=== PATIENT | male | born 1970 | race Caucasian/White ===

== ENCOUNTER 2024-02-19 17:15 | Outpatient (CLI) | payer BC, SELFPAY ==
--- NOTE | ~2024-02-19 | XR_ITS ---
EXAMINATION: XR pelvis 1-2V DATE: 02/19/2024 18:18 INDICATION: Pelvic pain. TECHNIQUE: An anteroposterior view of the pelvis was obtained. COMPARISON: None. FINDINGS: Bone alignment is normal. No fracture. There is mild osteoarthritis of the hips. IMPRESSION: 1. Mild osteoarthritis of the hips. Reviewed, dictated and finalized at location A.
== END 2024-02-19 17:16 | disposition home or self-care (01) ==
LOC: CHSIMG 17:18
PROVIDERS: PCP Internal Medicine; Visit Provider Internal Medicine
DX: R10.2 Pelvic and perineal pain (principal); M16.0 Bilateral primary osteoarthritis of hip
CPT/HCPCS: 72170

== ENCOUNTER 2024-09-22 10:17 | Outpatient (CLI) | payer BC, SELFPAY ==
--- NOTE | ~2024-09-22 | XR_ITS ---
XR chest 2V 09/22/2024 10:41 Indication: Chronic cough Procedure: 2 view chest Comparison: No prior studies for comparison. Findings: Heart size normal. Left lung clear. Right basilar airspace disease is present which may rep resent atelectasis or pneumonia. Impression: 1: Right basilar infiltrates may represent atelectasis and/or pneumonia. Reviewed, dictated and finalized at location A. Impression: 1: Right basilar infiltrates may represent atelectasis and/or pneumonia.
[2024-09-22 10:35] LABS: Basophils Absolute Auto 0.02 K/mm3 (0.00-0.10); Basophils Percent Auto 0.4 % (0.0-1.0); Eosinophils Absolute Auto 0.13 K/mm3 (0.02-0.50); Eosinophils Percent Auto 2.7 % (1.0-6.0); Hematocrit 46.3 % (40.0-54.0); Hemoglobin 16.3 g/dL (14.0-18.0); Immature Granulocyte Absolute 0.01 K/mm3 (0.00-0.00); Immature Granulocyte Percent A 0.2 % (0.0-0.0); Lymphocytes Absolute Auto 0.88 K/mm3 (1.10-4.50); Mean Corpuscular HGB Conc 35.2 g/dL (32-36); Mean Corpuscular Hemoglobin 29.2 pg (27.0-31.0); Mean Corpuscular Volume 82.8 fL (78.0-102.0); Mean Platelet Volume 9.2 fl (8.7-11.0); Monocytes Absolute Auto 0.63 K/mm3 (0.10-0.90); Monocytes Percent Auto 12.9 % (2.0-11.0); Neutrophils Absolute Auto 3.23 K/mm3 (1.70-7.20); Neutrophils Percent Auto 65.8 % (50.0-70.0); Platelet Count Result 199 K/mm3 (150-420); Red Blood Count 5.59 M/mm3 (4.70-6.10); White Blood Count 4.9 K/mm3 (4.8-10.8)
[2024-09-22 11:34] LABS: Anion Gap 5 mmol/L (4-12); Blood Urea Nitrogen 11 mg/dL (7-18); Calcium 8.8 mg/dL (8.5-10.1); Carbon Dioxide 32 mmol/L (21-32); Chloride 102 mmol/L (98-108); Estimated Glomerular Filt Rate > 60; Glucose 88 mg/dL (70-99); Osmolality Calculated 286 mOsm/kg (285-295); Potassium 3.9 mmol/L (3.5-5.1); Sodium 139 mmol/L (136-145)
--- OUTSIDE RECORDS SUMMARY | 2024-09-22 11:47 | XMS_ITS | Clinical Summary ---
Author Organization [facility] A dministration Address 

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
--- OUTSIDE RECORDS SUMMARY | 2024-09-22 11:47 | XMS_ITS | Encounter Summary ---
Author Organization [facility] Address 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
[2024-09-23 07:50] LABS: Alpha-1-Antitrypsin, QN 137 mg/dL (83-199)
[2024-09-24 15:08] LABS: Immunoglobulin E 205 kU/L (<OR=114)
== END 2024-09-22 10:18 | disposition home or self-care (01) ==
LOC: CHSLAB 10:21
PROVIDERS: PCP Internal Medicine; Visit Provider Internal Medicine
DX: R05.9 Cough, unspecified (principal); R91.8 Other nonspecific abnormal finding of lung field
CPT/HCPCS: 36415; 71046; 80048; 82103; 82785; 85025; 86038

== ENCOUNTER 2024-09-25 10:28 | Outpatient (CLI) | payer BC, SELFPAY ==
--- NOTE | ~2024-09-25 | CT_ITS ---
CT Scan of the Chest without Contrast: Clinical Indication: Abnormal chest x-ray,, cough Technique: Contiguous sections were acquired throughout the chest without intravenous contrast. Dose reduction technique was used on this scan by utilizing automated exposure control and iterative recon struction technique. The dose-length product (DLP) was 342.07 mGy-cm. Findings: There is no evidence of any significant mediastinal, hilar or axillary lymphadenopathy. The mediastin al soft tissues appear normal. There is no evidence of pleural or pericardial effusion. The lungs are clear. No pulmonary nodules or infiltrates are noted. Images through the upper abdomen reveal no abnormalities. Impression: No significant abnormalities seen. Reviewed, dictated and finalized at location . Impression: No significant abnormalities seen.
--- OUTSIDE RECORDS SUMMARY | 2024-09-25 11:16 | XMS_ITS | Encounter Summary ---
Author Organization [facility] Address 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
--- OUTSIDE RECORDS SUMMARY | 2024-09-25 11:16 | XMS_ITS | Continuity of Care Document ---
Author Organization [facility] Address [address] [place] [address] Phone Care Team Providers Care Fire Equipment Operator Name Role Phone Richmond Marrero MD Unavailable Unavailable Medications Medication Instructions Dosage Effective Dates (start - stop) Status Comments [place] 5 mg-325 mg tablet take 1 tablet by oral route every 4-6 hours as needed for pain - Active Procedures Procedure Date OFFICE/OUTPATIENT VISIT NEW Advance Directives Directive Yes / No Effective Date File Name No Information Encounters Encounter Description Practice Location Reason(s) For Visit Diagnoses Date Provider Providers Copied on Encounter OFFICE/OUTPAT IENT VISIT NEW [facility] , [address], [place], [address], tel:[phone] [facility] Sternal fracture Janes Fragoso. [address] , [place], [place], [id number]. tel:[phone] Family History Family Member Type Diagnosis Age At Onset Father Problem (finding) chronic obstructive vincent g disease Father Problem (finding) cancer Payers Payer name Insurance type Covered constitution party ID Authoriza tion(s) No Information Social History [...]
--- OUTSIDE RECORDS SUMMARY | 2024-09-25 11:16 | XMS_ITS | Clinical Summary ---
Author Organization [facility] Address [address] [place] [address] Care Team Providers Care Metal Smelter Name Role Phone Alton Shelley Primary Care Provider [phone] Allergies No known active allergies Medications sertraline (ZOLOFT) 50 MG tablet 04/11/2022 Active sildenafil (VIAGRA) 50 MG tablet as needed. 04/24/2022 Active tadalafil (CIALIS) 20 MG tablet as needed. 04/20/2022 Active traZODone (DESYREL) 100 MG tablet 06/03/2022 Active Active Problems No known active problems Encounters Date Type Department Care Team Description 06/30/2024 8:02 PM DIRECTOR OF ACQUISITION MARKETING - 06/30/2024 10:07 PM [facility] [address] [place] [address] [place] [address] Yaya Pisano MD Leg Pain Discharge Disposition: [...] on file Legal Sex Male 8:55 PM DIRECTOR OF ACQUISITION MARKETING Gender Identity Not on file Sexual Orientation Not on file Last Filed Vital Signs Vital Sign Reading Time Taken Comments Blood Pressure 150/92 06/30/2024 8:02 PM DIRECTOR OF ACQUISITION MARKETING Pulse 101 06/30/2024 8:02 PM DIRECTOR OF ACQUISITION MARKETING Temperature 37.6 C (99.7 F) 06/30/2024 8:02 PM DIRECTOR OF ACQUISITION MARKETING Respiratory Rate 16 06/30/2024 8:02 PM DIRECTOR OF ACQUISITION MARKETING Oxygen Saturation 96% 06/30/2024 8:15 PM DIRECTOR OF ACQUISITION MARKETING Inhaled Oxygen Concentration - - Weight 98.9 kg (218 lb) 06/30/2024 8:02 PM DIRECTOR OF ACQUISITION MARKETING Height 180.3 cm (5' 11 ) 06/30/2024 8:02 PM DIRECTOR OF ACQUISITION MARKETING Body Mass Index 30.4 06/30/2024 8:02 PM DIRECTOR OF ACQUISITION MARKETING Plan of Treatment Health Maintenance Due Date Last Done Comments Colorectal Cancer Screening Colonoscopy (10 Years) 1968 Annual Physical 02/04/1971 Hepatitis C 02/04/1986 DTaP, Tdap and Td Vaccines ( 1 - Tdap) 02/04/1987 Hepatitis B Vaccines (1 of 3 - 19+ 3-dose series) 02/04/1987 Zoster Vaccines (1 of 2) 02/04/2018 COVID-19 Vaccine (2023-2 5 season) 2024 PHQ-2 (Physician [place]) 06/18/2024 Meningococcal B Vaccine Aged Out No [...] SPINE WO CON STAT 06/30/2024 9:17 PM DIRECTOR OF ACQUISITION MARKETING CT FACIAL BONES WO CON STAT 06/30/2024 9:17 PM DIRECTOR OF ACQUISITION MARKETING CT HEAD WO CON STAT 06/30/2024 9:17 PM DIRECTOR OF ACQUISITION MARKETING XR TIBIA+FIBULA LT 2V STAT 06/30/2024 9:17 PM DIRECTOR OF ACQUISITION MARKETING XR TIBIA+FIBULA RT 2V STAT 06/30/2024 9:17 PM DIRECTOR OF ACQUISITION MARKETING XR KNEE AMIE 3V STAT 06/30/2024 9:17 PM DIRECTOR OF ACQUISITION MARKETING from Last 3 Months Results * CT HEAD WO CON (06/30/2024 9:17 PM DIRECTOR OF ACQUISITION MARKETING) Anatomical Region Laterality Modality Head Computed Tomogra phy 06/30/2024 9:22 PM DIRECTOR OF ACQUISITION MARKETING Impressions 06/30/2024 9:25 PM DIRECTOR OF ACQUISITION MARKETING IMPRESSION: 1. No CT evidence of an acute intracranial abnormality. 2. No maxillofacial bone fracture. 3. No cervical spine fracture. Ordered By: YAYA PISANO Interpreted By: Paul Guerra MD, 06/30/2024 9:22 PM Narrative 06/30/2024 9:25 PM DIRECTOR OF ACQUISITION MARKETING [address] [place] [id number] Examination: CT HEAD WO CON, CT CERV [...] Procedure Note Paul Guerra MD - 06/30/2024 [place] [id number] [facility] [place] [id number] Examination: CT HEAD WO CON, CT CERV [...] FACIAL BONES WO CON (06/30/2024 9:17 PM DIRECTOR OF ACQUISITION MARKETING) Anatomical Region Laterality Modality Facial Computed Tomogra phy 06/30/2024 9:22 PM DIRECTOR OF ACQUISITION MARKETING Impressions 06/30/2024 9:25 PM DIRECTOR OF ACQUISITION MARKETING IMPRESSION: 1. No CT evidence of an acute intracranial abnormality. 2. No maxillofacial bone fracture. 3. No cervical spine fracture. Ordered By: YAYA PISANO Interpreted By: Paul Guerra MD, 06/30/2024 9:22 PM Narrative 06/30/2024 9:25 PM DIRECTOR OF ACQUISITION MARKETING [address] [place] [id number] Examination: CT HEAD WO CON, CT CERV [...] Procedure Note Paul Guerra MD - 06/30/[address] [place] [id number] Examination: CT HEAD WO CON, CT CERV [...] fracture. Ordered By: YAYA PISANO Interpreted By: aPul Guerra MD, 06/30/2024 9:22 PM us Yaya Pisano MD CT Final Res ult * CT CERV SPINE WO CON (06/30/2024 9:17 PM DIRECTOR OF ACQUISITION MARKETING) Anatomical Region Laterality Modality Spine Computed Tomogra phy 06/30/2024 9:22 PM DIRECTOR OF ACQUISITION MARKETING Impressions 06/30/2024 9:25 PM DIRECTOR OF ACQUISITION MARKETING IMPRESSION: No fracture or malalignment. Referred By: Interpreted By: Giovanny Thapa MD, 06/30/2024 9:24 PM Narrative 06/30/2024 9:25 PM DIRECTOR OF ACQUISITION MARKETING [address] [place] [address] EXAM: CT CERV SPINE WO CON DATE: [...] MD / Giovanny Thapa MD - 06/30/2024 [place] [id number] [facility] [place] [address] EXAM: CT CERV SPINE WO CON DATE: [...] XR KNEE AMIE 3V (06/30/2024 9:17 PM DIRECTOR OF ACQUISITION MARKETING) Anatomical Region Laterality Modality Knee Radiographic Sujey ging 06/30/2024 9:47 PM DIRECTOR OF ACQUISITION MARKETING Impressions 06/30/2024 9:49 PM DIRECTOR OF ACQUISITION MARKETING IMPRESSION: Normal exam. Referred By: Interpreted By: Giovanny Thapa MD, 06/30/2024 9:47 PM Narrative 06/30/2024 9:49 PM DIRECTOR OF ACQUISITION MARKETING [address] [place] [id number] EXAM: XR KNEE AMIE 3V DATE: 06/30/2024 2041 hours No comparison INDICATION: Injury, pain TECHNIQUE: 3 views of each knee FINDINGS: No fracture or malalignment. With oblique lateral views, cannot reliably assess for any potential joint effusion. Procedure Note Giovanny Thapa MD - 06/30/[address] [place] [address] EXAM: XR KNEE AMIE 3V DATE: 06/30/2024 2041 hours No comparison INDICATION: Injury, pain TECHNIQUE: 3 views of each knee FINDINGS: No fracture or malalignment. With oblique lateral views, cannotreliably assess for any potential joint effusion. IMPRESSION: Normal exam. Referred By: Interpreted By: Giovanny Thapa MD, 06/30/2024 9:47 PM us Yaya Pisano MD GENERAL IMAGING Final Res ult * XR TIBIA+FIBULA RT 2V (06/30/2024 9:17 PM DIRECTOR OF ACQUISITION MARKETING) Anatomical Region Laterality Modality TibFib Radiographic Sujey ging 06/30/2024 9:33 PM DIRECTOR OF ACQUISITION MARKETING Impressions 06/30/2024 9:36 PM DIRECTOR OF ACQUISITION MARKETING IMPRESSION: No acute bone findings. Referred By: Interpreted By: Giovanny Thapa MD, 06/30/2024 9:33 PM Narrative 06/30/2024 9:36 PM DIRECTOR OF ACQUISITION MARKETING [address] [place] [id number] EXAM: XR TIBIA+FIBULA RT 2V DATE: 06/30/2024 No comparison INDICATION: Injury, pain TECHNIQUE: 2 views FINDINGS: Mild soft tissue fullness anterior to the ankle. No fracture or malalignment. Procedure Note Giovanny Thapa MD - 06/30/[address] [place] [id number] EXAM: XR TIBIA+FIBULA RT 2V DATE: 06/30/2024 No comparison INDICATION: Injury, pain TECHNIQUE: 2 views FINDINGS: Mild soft tissue fullness anterior to the ankle. No fracture ormalalignment. IMPRESSION: No acute bone findings. Referred By: Interpreted By: Giovanny Thapa MD, 06/30/2024 9:33 PM Yaya Pisano MD GENERAL IMAGING Final Res ult * XR TIBIA+FIBULA LT 2V (06/30/2024 9:17 PM DIRECTOR OF ACQUISITION MARKETING) Anatomical Region Laterality Modality TibFib Radiographic Sujey ging 06/30/2024 9:32 PM DIRECTOR OF ACQUISITION MARKETING Impressions 06/30/2024 9:33 PM DIRECTOR OF ACQUISITION MARKETING IMPRESSION: No acute bone findings. Referred By: Interpreted By: Giovanny Thapa MD, 06/30/2024 9:32 PM Narrative 06/30/2024 9:33 PM DIRECTOR OF ACQUISITION MARKETING [address] [place] [id number] EXAM: XR TIBIA+FIBULA LT 2V DATE: 06/30/2024 No comparison INDICATION: Injury, pain TECHNIQUE: 2 views FINDINGS: No fracture or malalignment. Mild soft tissue fullness anterior to the ankle. Procedure Note Giovanny Thapa MD - 06/30/[address] [place] [id number] EXAM: XR TIBIA+FIBULA LT 2V DATE: 06/30/2024 No comparison INDICATION: Injury, pain TECHNIQUE: 2 views FINDINGS: No fracture or malalignment. Mild soft tissue fullness anteriorto the ankle. IMPRESSION: No acute bone findings. Referred By: Interpreted By: Giovanny Thapa MD, 06/30/2024 9:32 PM Yaya Pisano MD GENERAL IMAGING Final Res ult from Last 3 Months Insurance [facility] Care Teams Metal Smelter Relationship Specialty Start Date End Date Alton Shelley PA PCP - General PHYSICIAN RUG DYER 06/26/22
--- OUTSIDE RECORDS SUMMARY | 2024-09-25 11:16 | XMS_ITS | Clinical Summary ---
Author Organization [facility] A dministration Address 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
== END 2024-09-25 10:29 | disposition home or self-care (01) ==
PROVIDERS: PCP Internal Medicine; Visit Provider Internal Medicine
DX: R91.8 Other nonspecific abnormal finding of lung field (principal); R05.3 Chronic cough
CPT/HCPCS: 71250

== ENCOUNTER 2024-11-04 09:27 | Outpatient (CLI) | payer BC, SELFPAY ==
--- OUTSIDE RECORDS SUMMARY | 2024-11-04 09:42 | XMS_ITS | Clinical Summary ---
Author Organization [facility] Address [address] [place] [id number] Care Team Providers Care Quality Assurance Supervisor Trim Name Role Phone Alton Shelley Primary Care Provider [phone] Allergies No known active allergies Medications sertraline (ZOLOFT) 50 MG tablet 04/11/2022 Active sildenafil (VIAGRA) 50 MG tablet as needed. 04/24/2022 Active tadalafil (CIALIS) 20 MG tablet as needed. 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:55 PM RICE FARMWORKER Gender Identity Not on file Sexual Orientation Not on file Last Filed Vital Signs Vital Sign Reading Time Taken Comments Blood Pressure 150/92 06/30/2024 8:02 PM RICE FARMWORKER Pulse 101 06/30/2024 8:02 PM RICE FARMWORKER Temperature 37.6 C (99.7 F) 06/30/2024 8:02 PM RICE FARMWORKER Respiratory Rate 16 06/30/2024 8:02 PM RICE FARMWORKER Oxygen Saturation 96% 06/30/2024 8:15 PM RICE FARMWORKER Inhaled Oxygen Concentration - - Weight 98.9 kg (218 lb) 06/30/2024 8:02 PM RICE FARMWORKER Height 180.3 cm (5' 11 ) 06/30/2024 8:02 PM RICE FARMWORKER Body Mass Index 30.4 06/30/2024 8:02 PM RICE FARMWORKER Plan of Treatment Health Maintenance Due Date Last Done Comments Colorectal Cancer Screening Colonoscopy (10 Years) 1968 Annual Physical 02/04/1971 Hepatitis C 02/04/1986 DTaP, Tdap and Td Vaccines ( 1 - Tdap) 02/04/1987 Hepatitis B Vaccines (1 of 3 - 19+ 3-dose series) 02/04/1987 Pneumococcal Vaccine: 50+ Ye ars (1 of 1 - PCV) 02/04/2018 Zoster Vaccines (1 of 2) 02/04/2018 COVID-19 Vaccine (1 - 2023-2 5 season) 2024 PHQ-2 (Physician [place]) 06/18/2024 Meningococcal B Vaccine Aged Out No l onger eligible based on patient's age to complete this topic Meningococcal Vaccine Aged Out No nupur rory eligible based on patient's age to complete this topic RSV Immunizations Under 20 Months Aged Out No longer eligible based on patient's age to complete this topic Insurance [facility] Care Teams Quality Assurance Supervisor Trim Relationship Specialty Start Date End Date Alton Shelley PA PCP - General PHYSICIAN CONTACT ACID PLANT OPERATOR 06/26/22
--- OUTSIDE RECORDS SUMMARY | 2024-11-04 09:42 | XMS_ITS | Encounter Summary ---
Author Organization [facility] Address 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
--- OUTSIDE RECORDS SUMMARY | 2024-11-04 09:42 | XMS_ITS | Clinical Summary ---
Author Organization [facility] A dministration Address [address] [place] [address] Care Team Providers Care Onshore Diver Name Role Phone Unavailable Primary Care Provider Unavailabl e Social History Tobacco Use Types Packs/Day Years Used Date Smoking Tobacco: Never Assessed Sex and Gender Information Value Date Recorded Sex Assigned at Not on file Legal Sex Male 5:23 AM DEBEADER Gender Identity Not on file Sexual Orientation Not on file Plan of Treatment Health Maintenance Due Date Last Done Comments DTAP/TDAP/TD VACCINES (1 - Tdap) 02/04/1987 HEPATITIS B VACCINES (1 of 3 - 19+ 3-dose series) 01/17 COLORECTAL SCREENING 02/04/2013 Colorectal Cancer Screening 02/04/2013 FIT-DNA Q 3 years 02/04/2013 FIT/FOBT Q 1 year 02/04/2013 Flex Sig/CT Colonography Q 5 years 02/04/2013 ZOSTER VACCINE (1 of 2) 02/04/2018 INFLUENZA VACCINE (#1) 2024
== END 2024-11-04 09:28 | disposition home or self-care (01) ==
PROVIDERS: PCP Internal Medicine; Visit Provider Internal Medicine
DX: R05.9 Cough, unspecified (principal); R94.2 Abnormal results of pulmonary function studies
CPT/HCPCS: 94060; 94726; 94729